=== PATIENT | male | born 1990 | race African-American/Black ===

== ENCOUNTER 2018-11-09 20:38 | Emergency (ER) | payer MEDICAID ==
[~2018-11-09] VITALS: Ht 188 cm; Wt 116.1 kg
[2018-11-09 20:42] VITALS: BP 156/102
[2018-11-09] MEDS: NACL 0.9% 1,000 ML IV ONE (21:09)
[2018-11-09] MEDS: ONDANSETRON 4 MG/2 ML VIAL IVP ONE (21:09)
[2018-11-09 21:22] LABS: BASOPHILS # (AUTO) 0.3 K/uL (0.00-0.22); BASOPHILS % (AUTO) 4.5 % (0.0-2.0); EOSINOPHILS # (AUTO) 0.2 K/uL (0-0.4); EOSINOPHILS % (AUTO) 3.8 % (0.0-4.0); HEMOGLOBIN 14.4 g/dL (12.0-18.0); LYMPHOCYTES # (AUTO) 0.8 K/uL (2.0-11.5); LYMPHOCYTES % (AUTO) 12.8 % (20.5-51.1); MEAN CORPUSCULAR HEMOGLOBIN 29 pg (27-31); MEAN CORPUSCULAR HGB CONC 33 g/dL (33-37); MEAN CORPUSCULAR VOLUME 88.1 fL (80-94); MONOCYTES # (AUTO) 0.3 K/uL (0.8-1.0); MONOCYTES % (AUTO) 5.3 % (1.7-9.3); NEUTROPHILS # (AUTO) 4.5 K/uL (1.8-7.7); NEUTROPHILS % (AUTO) 73.6 % (42.2-75.2); PLATELET COUNT (AUTO) 183 K/uL (140-450); RED BLOOD CELL COUNT(AUTO) 4.88 MIL/uL (4.20-6.10); RED CELL DISTRIBUTION WIDTH 12.4 % (11.6-13.7); WHITE BLOOD COUNT (AUTO) 6.1 K/uL (4.8-10.8)
[2018-11-09 21:32] LABS: ANION GAP 13.8 (8-16); CARBON DIOXIDE 26.8 mmol/L (21-32); CREATININE 1.2 mg/dL (0.7-1.3); POTASSIUM 3.6 mmol/L (3.5-5.1)
[2018-11-09] MEDS: LACTULOSE 20 GM/30 ML UDC PO ONE (21:35)
[2018-11-09 21:38] LABS: ALBUMIN 4.3 g/dL (3.4-5.0); TOTAL BILIRUBIN 0.7 mg/dL (0.0-1.0)
[2018-11-09 21:57] VITALS: BP 149/98
== END 2018-11-09 21:57 | disposition home or self-care (01) ==
LOC: MED 20:38
DX: K59.00 Constipation, unspecified (principal); R19.7 Diarrhea, unspecified; R11.2 Nausea with vomiting, unspecified
CPT/HCPCS: 36415; 74022; 80053; 85025; 96361; 96374; 99284; J2405; J7030